=== PATIENT | male | born 1975 | race Caucasian/White ===

== ENCOUNTER → 2021-01-07 | Outpatient (CLI) | payer OTHER ==
[2021-01-07] VITALS (13 sets, daily range): BP systolic 109–130; BP diastolic 57–86; PULSE 79–107
[~2021-01-07] MED LIST: AMARYL4 MG PO; BACTRIM DS 8001 TAB PO; CEPHALEXIN500 M1; CLEOCIN HC150 MG/CAP PO; GLUCOPHAGE1000 MG PO; NO HOME MEDICATIONS; VICODIN 5/5001 UDTAB PO
[2021-01-07 12:46] LABS: CREATININE, serum 0.72 (0.66-1.25)
--- NOTE | 2021-01-07 14:11 | NUR ---
1245 PT BROUGHT INTO ROOM 1305DR KNIGHT INTO ROOM 1320SAMPLES TAKEN. 1335SAMPLES TO LAB
--- NOTE | 2021-01-07 14:47 | NUR ---
WENT OVER DC INFORMATION WITH PT AND HE VERBALIZED UNDERSTANDING OF SAME. SNACK GIVEN
--- NOTE | 2021-01-07 15:14 | NUR ---
DR KNIGHT IN TO VISIT WITH PT.
== END ==
LOC: COL.RAD 11:26
PROVIDERS: Internal Medicine Gastroenterology; Psychiatry & Neurology Neurology
DX: B19.20 Unspecified viral hepatitis C without hepatic coma (principal); R74.8 Abnormal levels of other serum enzymes; F19.11 Other psychoactive substance abuse, in remission
CPT/HCPCS: 32108